=== PATIENT | female | born 1985 | race Caucasian/White ===

== ENCOUNTER 2018-08-11 00:30 | Outpatient (CLI) | payer BC ==
[2018-08-11 13:29] LABS: Hemoglobin 15.1 g/dL (12.0-16.0); Mean Corpuscular HGB CONC 33.4 g/dL (32.0-36.0); Mean Corpuscular Hemoglobin 31.6 pg (27.0-31.0); Mean Corpuscular Volume 94.6 fL (78.0-98.0); Mean Platelet Volume 8.6 fL (7.4-10.4); Platelet Count 248 thou/uL (130-400); RBC Distribution Width 11.4 % (11.5-14.5); Red Blood Cell (RBC) Count 4.77 mill/uL (4.20-5.40); White Blood Cell (WBC) Count 6.5 thou/uL (4.8-10.8)
== END 2018-08-11 00:31 | disposition home or self-care (01) ==
LOC: LABBT 00:30
PROVIDERS: ATTEND Obstetrics & Gynecology
DX: Z01.812 Encounter for preprocedural laboratory examination (principal); O02.1 Missed abortion
CPT/HCPCS: 85027; 86850; 86900; 86901

== ENCOUNTER 2018-08-12 11:23 | Day surgery (SDC) | payer BC ==
[2018-08-11 12:24] VITALS: BMI 23.0
--- NOTE | 2018-08-11 17:51 | HP ---
DATE OF PLANNED PROCEDURE: 08/12/2018 PREOPERATIVE DIAGNOSIS: Retained products of conception. PROCEDURE PLANNED: Hysteroscopy with dilation and curettage. HISTORY OF PRESENT ILLNESS: Ms. Anabella Ramirez is a 33-year-old, G3, P 1-0-2-1 with an early abnormal that was suspected as a blighted ovum that was treated medically approximately four weeks ago as an outpatient. The patient reported passing tissue and bleeding and had a followup ultrasound, where products of conception appeared to have passed. She continued to have a positive test three weeks after the miscarriage at which time she had a consultation with a interior paneler. Beta HCG at that time was approximately 2000. A repeat ultrasound was done in our office, which confirmed a thickened endometrial stripe. The patient at that time, had been having intermittent bleeding. Counseling was completed and the patient was consented for hysteroscopy with dilation and curettage for removal and evaluation of products of conception. PAST MEDICAL HISTORY: None. PAST SURGICAL HISTORY: Dilatation and curettage in 2016, dental surgery in the past. FAMILY HISTORY: Significant for a paternal grandmother with breast cancer. SOCIAL HISTORY: The patient is . She is not a smoker. She does not use illicit drugs. PREVIOUS OBSTETRICAL HISTORY: Significant for a term vaginal delivery in 2015, missed miscarriage at 6 weeks in March of 2018, and a current management of blighted ovum at 5 weeks in 2019. GYNECOLOGIC HISTORY: Significant for LEEP in 2012. Her most recent Pap smear was within normal limits and with a negative HPV. REVIEW OF SYSTEMS: Negative except as stated above. PHYSICAL EXAMINATION: VITAL SIGNS: Within normal limits. BMI 24. GENERAL: No acute distress. Alert and oriented. CARDIOVASCULAR: Nonlabored breathing. ABDOMEN: Nondistended. SKIN: No rashes. MUSCULOSKELETAL: Normal range of motion. PSYCHIATRIC: Alert and oriented, appropriate affect. DIAGNOSTIC STUDIES: Ultrasound on 08/06/2018, reports endometrium with increased vascularity and mixed echogenicity and cystic area with an endometrial stripe measuring 17 mm, otherwise normal ultrasound exam. ASSESSMENT AND PLAN: Ms. Anabella Ramirez is a G3, P 1-0-2-1 with retained products of conception suspected after medical management of blighted ovum and a persistent positive beta HCG. The patient is aware of the indications for surgery the indication for pathologic review of the specimen. The risks and benefits of the procedure, which include, but are not limited to, bleeding, infection, uterine perforation, damage to intraabdominal pelvic organs, inability to fully diagnose and treat all conditions at the time of surgery, and possible need for future medical and/or surgical management. The patient's questions have been answered and she desires to proceed with the procedure as listed above. Job ID: [id number]
[~2018-08-12 11:23] MED LIST: Dexamethasone 20 MG/5 ML VIAL ONE; Ketorolac Tromethamine 30 MG/ML VIAL ONE; Ondansetron PF 4 MG/2 ML Vial ONE; PROPOFOL 200 MG/20 ML VIAL ONE
[2018-08-12] MEDS ORDERED: Midazolam HCl 2 mg/2 ml Vial ONE ×2 (13:02→13:18)
[2018-08-12] MEDS ORDERED: Fentanyl 100 MCG/2 ML VIAL ONE (13:02)
[2018-08-12] MEDS ORDERED: CEFAZOLIN 2 GM/50 ML BAG ONE (13:18)
--- NOTE | 2018-08-12 20:19 | OP ---
DATE OF PROCEDURE: 08/12/2018 PREOPERATIVE DIAGNOSIS: Retained products of conception and persistently elevated beta HCG. POSTOPERATIVE DIAGNOSIS: Retained products of conception and persistently elevated beta HCG. PROCEDURE PERFORMED: Diagnostic hysteroscopy with dilation and curettage. DENTAL ASSISTANT MEDICAL ASSISTANT: None. COMPLICATIONS: None. ANESTHESIA: GETA per Dr. Oshea. ESTIMATED BLOOD LOSS: Less than 10 mL. OPERATIVE FINDINGS: 1. Normal-appearing vagina and cervix. 2. Small amount of presumed products of conception at the uterine fundus. 3. Post dilation curettage with normal-appearing endometrial cavity and bilateral tubal ostia noted. DESCRIPTION OF PROCEDURE: The patient was taken back to the OR with IV fluids running. When she was in the OR, she was placed in dorsal supine position and general anesthesia was obtained. Once the patient was asleep, she was placed in low dorsal lithotomy position. The vagina was prepped and draped in normal fashion for hysteroscopy. The bladder was drained. An operative speculum placed in the vagina and the cervix was identified and grasped with a single-tooth tenaculum at the anterior lip. The cervix was dilated to allow passage of the 5 mm hysteroscope. The hysteroscope was attached to the [employer] fluid management system. The scope was guided under direct visualization through the cervix and into the intrauterine cavity. In the intrauterine cavity, no polyps were noted. No abnormal findings were noted with the exception of decidual or tissue that appeared to be products of conception of the uterine fundus. The hysteroscope was then removed. A gentle sharp curettage was then performed after uterine cry was noted in all planes of the endometrial cavity. The specimen was sent to pathology and the hysteroscope was replaced through the cervix into the uterine cavity. The uterine cavity was again filled with normal saline. The uterine cavity appeared to be clear of all products of conception. The tubal ostia were identified bilaterally. There were no polyps or any abnormal findings within the uterus. The hysteroscope was then removed. The tenaculum was removed from the anterior lip of the cervix. Silver nitrate was placed at the tenaculum site for hemostasis. The patient was then cleaned, dried, taken out of lithotomy position, extubated, and transferred to the recovery room in good condition. Job ID: [id number]
== END 2018-08-12 15:50 | disposition home or self-care (01) ==
LOC: SDC 11:23
PROVIDERS: ATTEND Obstetrics & Gynecology
PROC: 10D17Z9 Manual Extraction of Products of Conception, Retained, Via Natural or Artificial Opening (ICD-10-PCS; principal; 2018-08-12)
DX: O03.4 Incomplete spontaneous abortion without complication (principal); Z98.890 Other specified postprocedural states
CPT/HCPCS: 88305; J2250; J3010

== ENCOUNTER 2019-10-12 19:30 | Inpatient (IN) | payer BC ==
[~2019-10-12 19:30] MED LIST changes: +Bupivacaine PF 0.5% 30 ML VIAL ONE; -Dexamethasone 20 MG/5 ML VIAL ONE; +EPHEDRINE 25 MG/5 ML SYRINGE ONE; -Ketorolac Tromethamine 30 MG/ML VIAL ONE; +Lidocaine 2% MPF 10 ML AMP (For Epidural Use) ONE; -Ondansetron PF 4 MG/2 ML Vial ONE; -PROPOFOL 200 MG/20 ML VIAL ONE
[2019-10-12] MEDS ORDERED: HYDROcodone/Acetaminophen 5/325 mg Tablet PO PRN ×2 (20:33)
[2019-10-12] MEDS ORDERED: Lidocaine 1% (PF) 30 ML VIAL SC PRN (20:33)
[2019-10-12] MEDS ORDERED: Butorphanol Tartrate 1 MG/ML VIAL SLOW IVP PRN (20:33)
[2019-10-12] MEDS ORDERED: NS w/ Oxytocin 10 units 500 ML IV SCH ×2 (20:33)
[2019-10-12] MEDS ORDERED: Promethazine HCl 25 MG/ML VIAL IM PRN (20:33)
[2019-10-12] MEDS ORDERED: hydrALAZINE 20 MG/ML VIAL SLOW IVP PRN (20:33)
[2019-10-12] MEDS ORDERED: Ibuprofen 800 MG TAB PO PRN (20:33)
[2019-10-12] MEDS ORDERED: Ondansetron PF 4 MG/2 ML Vial IVP PRN (20:33)
[2019-10-12] MEDS ORDERED: NS / Oxytocin 40 units/1000ml 1,000 ML IV PRN (20:33)
[2019-10-12 20:49] VITALS: BMI 30.7
[2019-10-12] MEDS ORDERED: Misoprostol 100 MCG TAB VAG SCH (21:00)
[2019-10-12 21:50] LABS: Hemoglobin 13.4 g/dL (12.0-16.0); Mean Corpuscular HGB CONC 35.5 g/dL (32.0-36.0); Mean Corpuscular Hemoglobin 33.4 pg (27.0-31.0); Mean Corpuscular Volume 94.2 fL (78.0-98.0); Mean Platelet Volume 9.2 fL (7.4-10.4); Platelet Count 198 thou/uL (130-400); Red Blood Cell (RBC) Count 4.02 mill/uL (4.20-5.40); White Blood Cell (WBC) Count 11.1 thou/uL (4.8-10.8)
[2019-10-12] MEDS: Lactated Ringer's 1,000 ML IV SCH ×2 (21:53→21:54)
[2019-10-12 22:32] LABS: Syphilis Antibody Nonreactive (Nonreactive); Syphilis Antibody Index 0.03 S/CO (<1.00 Non-Reactive)
[2019-10-12 22:33] LABS: HBSAg Index 0.17 S/CO (0-0.99); Hep B Surf Ag Non-Reactive S/CO (NonReactive)
[2019-10-13] MEDS ORDERED: Misoprostol 100 MCG TAB VAG SCH (01:15)
[2019-10-13] MEDS ORDERED: Fentanyl 4 mcg/Bup 0.1% Cadd 100 ML ONE ×2 (02:18→11:20)
[2019-10-13] MEDS ORDERED: Fentanyl 100 MCG/2 ML VIAL ONE ×2 (02:45→14:59)
[2019-10-13] MEDS ORDERED: Acetaminophen 325 MG TAB PO PRN (03:13)
[2019-10-13] MEDS ORDERED: Lactated Ringer's 500 ML IV PRN (03:13)
[2019-10-13] MEDS ORDERED: Naloxone HCl 0.4 mg/ml Vial IVP PRN ×4 (03:13→15:03)
[2019-10-13] MEDS ORDERED: Promethazine HCl 25 MG/ML VIAL IM PRN ×2 (03:13→15:03)
[2019-10-13] MEDS ORDERED: EPHEDRINE 25 MG/5 ML SYRINGE SLOW IVP PRN (03:13)
[2019-10-13] MEDS ORDERED: Ondansetron PF 4 MG/2 ML Vial IVP PRN ×3 (03:13→17:21)
[2019-10-13] MEDS ORDERED: diphenhydrAMINE 50 MG/ML VIAL IVP PRN ×2 (03:13→15:03)
[2019-10-13] MEDS ORDERED: Communication Order-Pharmacy FS SCH ×2 (03:15→15:15)
[2019-10-13] MEDS ORDERED: Fentanyl 4 mcg/Bupivacaine 0.1% Cassette 100 ML EPIDURAL SCH (03:15)
[2019-10-13] MEDS: Lactated Ringer's 1,000 ML IV SCH ×2 (07:32→22:06)
[2019-10-13] MEDS ORDERED: Terbutaline Sulfate 1 MG/ML VIAL ONE (13:24)
--- NOTE | 2019-10-13 14:29 | PDOC.LDPN ---
Labor & Delivery Progress Note - Subjective Subjective: comfortable - Objective Vital signs reviewed and normal: yes General: NAD Dilation: 7 Effacement: 75% Station: -1 FHT: category 2, late decelerations Dendron contractions every: 2 FSE placed: yes Resuscitative measures: maternal oxygen, maternal position change - Assessment (1) 40 weeks gestation of Code(s): Z3A.40 - 40 WEEKS GESTATION OF Current Visit: No Status: Acute (2) Normal Code(s): Z34.90 - ENCNTR FOR SUPRVSN OF NORMAL , UNSP, UNSP TRIMESTER Current Visit: No Status: Acute Plan: continue plan of care, resuscitative measures -: A/P: Arrived at L and D after report of two prolonged decelerations that resolved w resuscitative measures. After SVE pt with another deceleration. Improvement after position change to all fours/elbows and knees and O2 on. Discussed close monitoring of FHT with patient and indication for CS if NRFHT persists and remote from delivery.
[2019-10-13] MEDS ORDERED: Azithromycin 500 MG VIAL ONE (14:45)
[2019-10-13] MEDS ORDERED: Oxytocin 10 UNITS/ML VIAL ONE (14:50)
[2019-10-13] MEDS ORDERED: MORPHINE 5 MG/10 ML PF VIAL ONE (14:50)
[2019-10-13] MEDS ORDERED: Ondansetron PF 4 MG/2 ML Vial ONE (14:50)
[2019-10-13] MEDS ORDERED: HYDROmorphone 2 MG/ML VIAL SLOW IVP PRN (15:03)
[2019-10-13] MEDS ORDERED: Naloxone HCl 0.4 mg/ml Vial IV PRN (15:03)
[2019-10-13] MEDS ORDERED: L&D-Morphine 4 MG/ML VIAL SLOW IVP PRN (15:03)
[2019-10-13] MEDS ORDERED: Ketorolac Tromethamine 30 MG/ML VIAL IVP PRN (15:03)
[2019-10-13] MEDS ORDERED: Promethazine HCl 25 MG SUPP PR PRN (15:03)
[2019-10-13] MEDS ORDERED: Meperidine HCl/PF 25 MG/ML VIAL SLOW IVP PRN (15:03)
[2019-10-13] MEDS ORDERED: Ondansetron HCl/PF 4 MG/2 ML Vial IVP PRN (15:03)
[2019-10-13] MEDS ORDERED: EPHEDRINE 25 MG/5 ML SYRINGE ONE (15:04)
[2019-10-13 15:14] LABS: Actual Bicarbonate (HCO3v) 25 mEq/L (22-28); Base Excess -3.8 mEq/L (-2.0 to +3.0)
[2019-10-13] MEDS ORDERED: Ketorolac Tromethamine 30 MG/ML VIAL IVP SCH (15:15)
[2019-10-13 15:17] LABS: Actual Bicarbonate (HCO3a) 24.6 mEq/L (22-28); Base Excess (BEa) -5.9 mEq/L (-2.0 to +3.0)
[2019-10-13 15:19] LABS: pH (Cord, venous) 7.23 (7.32-7.43)
--- NOTE | 2019-10-13 15:34 | PDOC.OPDEL ---
OB Operative/Delivery Note Delivery Dr/Surgeon: Delvin Assist: Nadia Pre-Delivery Diagnosis: elective induction, non-reassuring tracing Procedure/Post Delivery Dx: primary low transverse CS Weeks gestation: 40 - Findings A Sex: male Weight: 8 lb 7 oz - 1 min: 7 - 5 min: 9 - Additional Findings/Plan Placenta delivered: spontaneous findings: low transverse hysterotomy with extension (inferior left corner 1.5cm from edge) Estimated blood loss: 750ml, QBL pending Compilations/Other Findings: nuchal cord x 1 Post delivery plan: routine recovery
[2019-10-13] MEDS ORDERED: Promethazine HCl 25 MG/ML VIAL ONE (15:36)
[2019-10-13] MEDS ORDERED: Meperidine HCl/PF 25 MG/ML VIAL ONE (17:18)
[2019-10-13] MEDS ORDERED: diphenhydrAMINE 25 MG CAP PO PRN (17:21)
[2019-10-13] MEDS ORDERED: Bisacodyl 10 MG SUPP PR PRN (17:21)
[2019-10-13] MEDS ORDERED: Adacel (T-DAP) 0.5 ML SYRINGE IM ONE (17:21)
[2019-10-13] MEDS ORDERED: hydrALAZINE 20 MG/ML VIAL SLOW IVP PRN (17:21)
[2019-10-13] MEDS ORDERED: Lanolin Ointment 7 GM TUBE TOP PRN (17:21)
[2019-10-13] MEDS ORDERED: Meperidine HCl/PF 25 MG/ML VIAL IM PRN (17:21)
[2019-10-13] MEDS: Docusate Calcium (SURFAK) 240 MG CAP PO SCH (20:29)
[2019-10-13] MEDS: HYDROcodone/Acetaminophen 5/325 mg Tablet PO PRN (20:30)
[2019-10-13] MEDS: Simethicone Chewable 80 MG TAB PO PRN (20:31)
[2019-10-13] MEDS: Ibuprofen 800 MG TAB PO SCH (21:59)
--- NOTE | 2019-10-13 23:29 | OP ---
DATE OF PROCEDURE: 10/13/2019 PREOPERATIVE DIAGNOSES: 1. Induction of labor at 40 weeks and 6 days. 2. Non-reassuring heart tones, remote from delivery. POSTOPERATIVE DIAGNOSIS: Status post primary low transverse section. PROCEDURE PERFORMED: Primary low transverse section. MERCHANDISING COORDINATOR: Francisco Zuniga MD COMPLICATIONS: None. ANESTHESIA: Epidural per Dr. Jiménez. OPERATIVE FINDINGS: 1. Low-transverse hysterotomy with extension at the left corner inferiorly approximately 1.5 cm repaired with zoroastrian of anatomy. 2. Copious amounts of clear amniotic fluid. 3. Male infant, Apgars 7 and 9, weight 8 pounds 7 ounces to nursery. 4. Normal-appearing uterus, tubes, and ovaries bilaterally. 5. Placenta delivered intact with three-vessel cord. 6. Cord blood collected for cord gas. 7. Surgical site hemostatic and fundus firm. INDICATIONS FOR DELIVERY: Anabella Ramirez is undergoing an induction of labor for postdates at 40 weeks and 6 days. Throughout her labor course, she had a series of prolonged decelerations that recovered with position change and resuscitative measures. Despite frequent position change and oxygen, the patient had a prolonged deceleration and a was called for operative delivery remote from vaginal delivery. The patient was taken back to the OR with IV fluids running. When she was in the OR, she was placed in dorsal supine position. A Pearson catheter and epidural catheter had previously been placed. The abdomen was prepped and draped in normal fashion for section. The surgeons were gowned and gloved. The Pfannenstiel skin incision was made with a scalpel. Skin incision was carried down through the subcutaneous tissue and to the fascia. Once the fascia was reached, it was incised in the midline and extended superolaterally using curved Marc scissors. Florencio clamps were placed at the superior border of the fascia, which was sharply and bluntly dissected off the rectus abdominis muscles. In similar fashion, the Florencio clamps were placed at the inferior border of the fascia, which dissected down toward the pubic symphysis. The rectus muscles were bluntly in the midline. The Jarret O retractor was placed for retraction, visualization, and protection of the wound. A low-transverse hysterotomy was made with a scalpel and copious amount of amniotic fluid was noted after creation of the hysterotomy. Hysterotomy was extended using the Haas maneuver. The infant was delivered vertex through the incision. Nose and mouth were suctioned. The cord was doubly clamped and cut. The was handed off to special care nurses in attendance. Cord gas and cord blood were collected. The placenta was delivered. The uterus was exteriorized and cleaned of clot and debris. It was returned to the abdominal cavity. An extension was noted on examination of the hysterotomy at the left corner that extended toward the vagina, approximately 1.5 cm from the hysterotomy edge. This extension was repaired as the hysterotomy was closed. The hysterotomy was closed using running locked suture of Monocryl suture. The area of the extension was oversewn for additional hemostasis. After hemostasis was assured and the hysterotomy was irrigated and dried, it was inspected with no areas of bleeding noted. The count was correct at this point. The Jarret retractor was removed from the abdominal cavity. The rectus muscle and fascia were inspected with no bleeding noted. The rectus fascia was reapproximated in a running fashion from corner to corner. The subcutaneous tissue was then cleaned and dried. Any small areas of bleeding were controlled with Bovie cauterization. The subcutaneous tissue was reapproximated with a running suture of plain gut. The skin was closed with 4-0 Monocryl and dressed with Dermabond dressing. The counts were correct. At the end of the case, the patient tolerated the procedure well. There were no complications. Job ID: [id number]
[2019-10-14] MEDS: Simethicone Chewable 80 MG TAB PO PRN ×3 (01:26→19:54)
[2019-10-14] MEDS: HYDROcodone/Acetaminophen 5/325 mg Tablet PO PRN ×6 (01:26→21:08)
--- NOTE | 2019-10-14 02:49 | OP ---
DATE OF PROCEDURE: 10/13/2019 PRIMARY WILDLIFE POLICY PROFESSIONAL: Arnold Hargrove DO, MS The patient is a 34-year-old female, who underwent a primary for nonreassuring heart tones. Her primary OB is the primary surgeon. I functioned as the welder first class. Please refer to her operative note for complete details. Job ID: [id number]
[2019-10-14] MEDS: Ibuprofen 800 MG TAB PO SCH ×3 (05:51→21:07)
[2019-10-14 06:49] LABS: Hemoglobin 10.2 g/dL (12.0-16.0); Mean Corpuscular HGB CONC 34.3 g/dL (32.0-36.0); Mean Corpuscular Hemoglobin 33.1 pg (27.0-31.0); Mean Corpuscular Volume 96.6 fL (78.0-98.0); Mean Platelet Volume 8.5 fL (7.4-10.4); Platelet Count 143 thou/uL (130-400); RBC Distribution Width 11.8 % (11.5-14.5); Red Blood Cell (RBC) Count 3.09 mill/uL (4.20-5.40); White Blood Cell (WBC) Count 16.3 thou/uL (4.8-10.8)
[2019-10-14] MEDS: Docusate Calcium (SURFAK) 240 MG CAP PO SCH ×2 (08:41→19:53)
--- NOTE | 2019-10-14 09:30 | PDOC.PP ---
Post Progress Note Post Day #: 1 Subjective: doing well, tolerating regular diet, pain controlled w PO meds PO intake tolerated: yes Flatus: yes Ambulation: yes Vital Signs (12 hours) Temp Pulse Resp BP Pulse Ox 10/14/19 07:55 98.4 F 79 20 110/60 96 10/14/19 05:45 98.4 F 86 16 98/63 10/14/19 01:30 98.7 F 84 16 111/62 Weight Weight 168 lb - Physical Examination General: NAD Respiratory: non-labored breathing Abdominal: no distention Skin: CS incision dry & intact Psychiatric: A&Ox3, normal affect Result Diagrams: 10/14/19 06:26 Additional Labs: Post Labs Blood Type B NEGATIVE 10/12/19 21:16 Hep Bs Antigen Non-Reactive S/CO (NonReactive) 10/12/19 21:16 (1) 40 weeks gestation of Code(s): Z3A.40 - 40 WEEKS GESTATION OF Status: Acute (2) Normal Code(s): Z34.90 - ENCNTR FOR SUPRVSN OF NORMAL , UNSP, UNSP TRIMESTER Status: Acute - Assessment/Plan POD1 sp 1CS for NRFHT remote from delivery. Doing well today, plan for DC hall and ambulation later this AM.
[2019-10-15] MEDS: HYDROcodone/Acetaminophen 5/325 mg Tablet PO PRN (01:07)
[2019-10-15] MEDS: Simethicone Chewable 80 MG TAB PO PRN (05:42)
[2019-10-15] MEDS: Ibuprofen 800 MG TAB PO SCH ×2 (05:42→14:10)
[2019-10-15 08:09] VITALS: BP 108/67; TEMP 98.8
[2019-10-15] MEDS: Docusate Calcium (SURFAK) 240 MG CAP PO SCH (09:44)
--- NOTE | 2019-10-15 10:14 | PDOC.PP ---
Post Progress Note Post Day #: 2 Subjective: pain controlled w IBU and occ [place], post op goals met, ready for DC PO intake tolerated: yes Flatus: yes Ambulation: yes Vital Signs (12 hours) Temp Pulse Resp BP Pulse Ox 10/15/19 08:08 98.8 F 75 20 108/67 97 10/15/19 06:00 97.8 F 73 16 99/57 L 10/15/19 01:00 98.1 F 85 16 100/64 Weight Weight 168 lb - Physical Examination General: NAD Respiratory: non-labored breathing Abdominal: no distention Skin: CS incision dry & intact, no rash Psychiatric: A&Ox3, normal affect Result Diagrams: 10/14/19 06:26 Additional Labs: Post Labs Blood Type B NEGATIVE 10/12/19 21:16 Hep Bs Antigen Non-Reactive S/CO (NonReactive) 10/12/19 21:16 (1) 40 weeks gestation of Code(s): Z3A.40 - 40 WEEKS GESTATION OF Status: Acute (2) Normal Code(s): Z34.90 - ENCNTR FOR SUPRVSN OF NORMAL , UNSP, UNSP TRIMESTER Status: Acute (3) delivery delivered Code(s): O82 - ENCOUNTER FOR DELIVERY WITHOUT INDICATION Status: Acute - Assessment/Plan POD2 doing well, plan for DC today. Discussed incision check one week.
== END 2019-10-15 15:25 | disposition home or self-care (01) | DRG 788 ==
LOC: L&D 20:10 → 3SW 10-13 18:05
PROVIDERS: ADMIT Obstetrics & Gynecology; ATTEND Obstetrics & Gynecology
PROC: 4A1HXCZ Monitoring of Products of Conception, Cardiac Rate, External Approach (ICD-10-PCS; 2019-10-12)
PROC: 10D00Z1 Extraction of Products of Conception, Low, Open Approach (ICD-10-PCS; principal; 2019-10-13)
DX: O76 Abnormality in fetal heart rate and rhythm complicating labor and delivery (principal); Z3A.40 40 weeks gestation of pregnancy; O69.81X0 Labor and delivery complicated by cord around neck, without compression, not applicable or unspecified; Z37.0 Single live birth
CPT/HCPCS: 36415; 51702; 82805; 85027; 86780; 86850; 86870; 86900; 86901; 87340; J0456; J0690; J2001; J2175; J2274; J2405; J2550; J2590; J3010; J3105; S0020